=== PATIENT | female | born 1985 | race Caucasian/White ===

== ENCOUNTER 2016-11-07 10:32 | Emergency (ER) | payer MEDICAID ==
[~2016-11-07] VITALS: Ht 157.5 cm; Wt 64.5 kg
[2016-11-07 10:35] VITALS: Ht 157.5 cm; Wt 64.5 kg
[2016-11-07] MEDS ORDERED: SOD CHLORIDE 0.9% 1,000 ML IV STA (10:52)
[2016-11-07] MEDS ORDERED: ONDANSETRON 4 MG INJ IV STA (10:52)
[2016-11-07 11:35] LABS: ADD UMIC YES; URINE BILIRUBIN (Dip) NEGATIVE (NEGATIVE); URINE BLOOD (Dip) 3+ (NEGATIVE); URINE COLOR LT. YELLOW (YELLOW); URINE GLUCOSE (Dip) NEGATIVE (NEGATIVE); URINE KETONES (Dip) TRACE (NEGATIVE); URINE LEUKOCYTE ESTERASE (Dip) 1+ (NEGATIVE); URINE NITRITE (Dip) NEGATIVE (NEGATIVE); URINE TOTAL PROTEIN (Dip) TRACE (NEGATIVE); URINE UROBILINOGEN (Dip) 0.2 E.U./dL (0.1-1.0)
[2016-11-07 11:37] LABS: BASOPHILS % 0.4 % (0.0-2.0); EOSINOPHILS % 0.3 % (0.0-7.0); HEMATOCRIT 38.4 % (37.0-47.0); HEMOGLOBIN 12.8 g/dl (12.0-16.0); LYMPHOCYTES # 1.6 10^3/ul (0.8-2.9); MEAN CORPUSCULAR HEMOGLOBIN 28.2 pg (29.0-33.0); MEAN CORPUSCULAR HGB CONC 33.3 g/dl (32.0-37.0); MEAN CORPUSCULAR VOLUME 84.8 fl (82.0-101.0); MEAN PLATELET VOLUME 10.1 fl (7.4-10.4); MONOCYTE # 0.5 10^3/ul (0.3-0.9); MONOCYTES % 4.6 % (0.0-11.0); NEUTROPHIL # 8.1 10^3/ul (1.6-7.5); NEUTROPHILS % 78.7 % (39.0-77.0); PLATELET COUNT 222 10^3/UL (140-440); RED BLOOD COUNT 4.52 10^6/ul (4.20-5.40); RED CELL DISTRIBUTION WIDTH 13.7 % (11.5-14.5); UNCORRECTED WBC 10.3 10^3/ul (4.8-10.8); WHITE BLOOD COUNT 10.3 10^3/ul (4.8-10.8)
[2016-11-07 11:39] LABS: CONDITION 1
[2016-11-07 11:40] LABS: ALBUMIN 3.8 g/dl (3.3-4.9)
[2016-11-07 11:43] LABS: ALBUMIN/GLOBULIN RATIO 0.97; BILIRUBIN,INDIRECT 0.1 mg/dl (0-1.1); BILIRUBIN,TOTAL 0.1 mg/dl (0.2-1.3); CREATININE 0.54 mg/dl (0.44-1.00); TOTAL PROTEIN 7.7 g/dl (6.1-8.1)
[2016-11-07 11:44] LABS: CALCIUM 8.8 mg/dl (8.4-10.2)
[2016-11-07 11:47] LABS: SQUAMOUS EPITHELIAL CELL,UR OCCASIONAL
[2016-11-07] MEDS ORDERED: CEFTRIAXONE 1 GM/50 ML (PMX) 50 ML IVPB ONE (13:00)
[2016-11-07] MEDS ORDERED: METO10TA92 PO (13:54)
[2016-11-07] MEDS ORDERED: CEPH-443 PO (13:54)
--- NOTE | 2016-11-07 14:25 | ERD ---
ER Documentation Chief Complaint Date/Time DATE: 11/07/16 TIME: 14:11 Chief Complaint sent by her OB for Hyperemesis 15 weeks HPI Patient is . She is 15 weeks . She was sent here by her [employer]LINE MARKETING SPECIALIST for vomiting and hyperemesis gravidarum. She says ever since her she has been vomiting all the time. The vomiting is worse the last 2 weeks she does not have abdominal pain. She does have an unknown nausea medication it is not helping much. No past medical history no medications or allergies no fevers or chills no UTI symptoms. ROS All systems reviewed and are negative except as per history of present illness. Medications Home Meds Active Scripts Metoclopramide* (Reglan*) 10 Mg Tablet, 10 MG PO Q6 Y for NAUSEA AND/OR VOMITING , #10 TAB Prov:MICHAEL PORTER DO 11/07/16 Cephalexin* (Keflex*) 500 Mg Capsule, 500 MG PO TID for 7 Days, CAP Prov:MICHAEL PORTER DO 11/07/16 Allergies Allergies: Coded Allergies: No Known Allergy (Unverified , 11/07/16) PMhx/Soc Medical and Surgical Hx: pt denies Medical Hx, pt denies Surgical Hx Hx Alcohol Use: No Hx Substance Use: No Hx Tobacco Use: No Smoking Status: Never smoker Physical Exam Vitals Vital Signs Date Time Temp Pulse Resp B/P Pulse Ox O2 Delivery O2 Flow Rate FiO2 11/07/16 10:35 98.7 87 18 111/59 100 Physical Exam Const: Vomiting alert oriented well-developed well-nourished Head: Atraumatic Eyes: Normal Conjunctiva ENT: Normal External Ears, Nose and Mouth. Neck: Full range of motion..~ No meningismus. Resp: Clear to auscultation bilaterally Cardio: Regular rate and rhythm, no murmurs Abd: Soft, non tender, gravid. Normal bowel sounds no rebound rigidity or guarding Skin: No petechiae or rashes Back: No midline or flank tenderness Ext: No cyanosis, or edema Neur: Awake and alert Psych: Normal Mood and Affect Result Diagram: 11/07/16 1115 11/07/16 1115 Results 24 hrs Laboratory Tests Test 11/07/16 11:15 Alanine Aminotransferase (ALT/SGPT) 16IU/L Albumin 3.8g/dl Albumin/Globulin Ratio 0.97 Alkaline Phosphatase 69IU/L Anion Gap 17 Aspartate Amino Transf (AST/SGOT) 17IU/L Basophils # 0.010^3/ul Basophils % 0.4% Blood Morphology Comment Blood Urea Nitrogen 8mg/dl Calcium Level 8.8mg/dl Carbon Dioxide Level 24mmol/L Chloride Level 103mmol/L Creatinine 0.54mg/dl Direct Bilirubin 0.00mg/dl Eosinophils # 0.010^3/ul Eosinophils % 0.3% Globulin 3.90g/dl Glucose Level 75mg/dl Hematocrit 38.4% Hemoglobin 12.8g/dl Indirect Bilirubin 0.1mg/dl Lipase 28U/L Lymphocytes # 1.610^3/ul Lymphocytes % 16.0% Mean Corpuscular Hemoglobin 28.2pg Mean Corpuscular Hemoglobin Concent 33.3g/dl Mean Corpuscular Volume 84.8fl Mean Platelet Volume 10.1fl Monocytes # 0.510^3/ul Monocytes % 4.6% Neutrophils # 8.110^3/ul Neutrophils % 78.7% Nucleated Red Blood Cells # 0.010^3/ul Nucleated Red Blood Cells % 0.0/100WBC Platelet Count 43596^3/UL Potassium Level 4.0mmol/L Red Blood Count 4.5210^6/ul Red Cell Distribution Width 13.7% Sodium Level 140mmol/L Total Bilirubin 0.1mg/dl Total Protein 7.7g/dl Urine Bilirubin NEGATIVE Urine Clarity CLEAR Urine Color LT. YELLOW Urine Glucose NEGATIVE% Urine Hemoglobin 3+ Urine Ketones TRACE Urine Leukocyte Esterase 1+ Urine Microscopic RBC 2-5/HPF Urine Microscopic WBC 0-2/HPF Urine Nitrite NEGATIVE Urine Specific [place] >=1.030 Urine Squamous Epithelial Cells OCCASIONAL Urine Total Protein TRACE Urine Urobilinogen 0.2 E.U./dL Urine pH 6.0 White Blood Count 10.310^3/ul Current Medications Medications (Trade) Dose Ordered Sig/Leyda Route PRN Reason Start Time Stop Time Status Last Admin Dose Admin Sodium Chloride (NS) 1,000 ml @ 1,000 mls/hr Q1H STAT IV 11/07/16 10:52 11/07/16 11:51 DC 11/07/16 11:18 Ondansetron HCl 4 mg 4 mg ONCE STAT IV 11/07/16 10:52 11/07/16 10:54 DC 11/07/16 11:18 Ceftriaxone Sodium (Rocephin) 50 ml @ 100 mls/hr ONCE ONCE IVPB 11/07/16 13:00 11/07/16 13:29 DC 11/07/16 12:54 Procedures/MDM She has high specific gravity and trace ketones in the urine more consistent with dehydration and so we did give her IV fluids here. She felt better after the IV fluids. Urinalysis shows leukocyte esterase that she may have a UTI and we gave her Rocephin antibiotics for home. I gave her Reglan for home and should follow-up with her [employer]IST. Her labs are otherwise not significant she does not have a leukocytosis so I doubt pyelonephritis cholangitis cholecystitis or choledocholithiasis pancreatitis as her lipase and LFTs and white blood cell are all normal. I doubt appendicitis as she does not have abdominal pain or fevers no right lower quadrant pain. This is likely hyperemesis gravidarum. Vital signs are stable she stable for discharge and outpatient follow-up. Departure Diagnosis: Primary Impression: Hyperemesis gravidarum Additional Impression: Acute UTI Condition: Stable Patient Instructions: Understanding Urinary Tract Infections (UTIs), Hyperemesis Gravidarum MICHAEL PORTER DO Nov 07, 2016 14:22
== END 2016-11-07 14:05 | disposition home or self-care (01) ==
LOC: FTE 10:32
DX: O21.0 Mild hyperemesis gravidarum (principal); Z3A.15 15 weeks gestation of pregnancy
CPT/HCPCS: 36415; 80053; 81001; 81003; 83690; 85025; 87086; 96374; 96375; J0696; J2405; J7030; Z7502